=== PATIENT | female | born 1945 | race African-American/Black ===

== ENCOUNTER 2016-12-06 12:55 | Inpatient (IN) | payer MEDICARE, MEDICAID ==
[~2016-12-06] VITALS: Ht 149.9 cm; Wt 78.5 kg
--- NOTE | 2016-12-06 12:55 | NUR ---
PT BIB FAMILY C/O ALBA PAIN S/P FALL, -KO. PLACED ON MONITOR. VSS. AWAITING MD ORDER. GOWNED PT.
--- NOTE | 2016-12-06 13:42 | NUR ---
CALLED NURSING SUP. FOR TELE BED
--- NOTE | 2016-12-06 13:44 | NUR ---
CHASE PAGED, DR. GRETTA Rosado PRODUCTION HARDENER
[2016-12-06] MEDS ORDERED: FENO145T20 PO (14:18)
[2016-12-06] MEDS ORDERED: AMLO5TAB2 PO (14:18)
[2016-12-06] MEDS ORDERED: METO50TA3 PO (14:18)
[2016-12-06] MEDS ORDERED: ASPI81TA2 PO (14:18)
[2016-12-06] MEDS ORDERED: ATOR10TA PO (14:18)
[2016-12-06] MEDS ORDERED: GABA-534 PO (14:18)
[2016-12-06] MEDS ORDERED: PROP15DR EACHEYE (14:20)
[2016-12-06] MEDS ORDERED: LATA2.5D7 EACHEYE (14:20)
[2016-12-06] MEDS ORDERED: INSU100I19 SQ (14:20)
[2016-12-06] MEDS ORDERED: DORZ10DR11 EACHEYE (14:20)
[2016-12-06] MEDS ORDERED: INSU100I4 SQ (14:20)
--- NOTE | 2016-12-06 14:48 | NUR ---
PT BACK FROM CT VIA [facility]
[2016-12-06 15:40] LABS: INR 1.12 (0.87-1.13); PROTHROMBIN TIME 11.8 SECS (9.5-12.7); TROPONIN I < 0.017 ng/mL (0.00-0.056)
--- NOTE | 2016-12-06 15:40 | NUR ---
AWAITING PICC LINE INSERTION
[2016-12-06 15:43] LABS: CALCIUM, SERUM 8.5 mg/dL (8.5-10.1); CARBON DIOXIDE 24 mmol/L (21-32); CHLORIDE 98 mmol/L (98-107); CREATININE 1.4 mg/dL (0.6-1.3); GLUCOSE 297 mg/dL (74-106); POTASSIUM 3.4 mmol/L (3.5-5.1); SODIUM SERUM 132 mmol/L (136-145); UREA NITROGEN, BLOOD 33 mg/dL (7-18)
[2016-12-06 15:49] LABS: ALANINE AMINOTRANSFERASE 30 U/L (12-78); ASPARTATE AMINOTRANSFERASE 26 U/L (15-37); BILIRUBIN,DIRECT 0.3 mg/dL (0.0-0.2); BILIRUBIN,TOTAL 0.6 mg/dL (0.2-1.0); TOTAL PROTEIN, SERUM 7.7 g/dL (6.4-8.2)
[2016-12-06 15:50] LABS: ALKALINE PHOSPHATASE 51 U/L (46-116)
--- NOTE | 2016-12-06 16:51 | NUR ---
PAGED DR. GLYNN FOR ADMISSION
[2016-12-06] MEDS ORDERED: MAG HYDROX/AL HYDROX/SIMETH 30 ML UDC PO PRN (17:00)
[2016-12-06] MEDS ORDERED: Z GUARD REMEDY 2 OZ OINT TP PRN (17:00)
[2016-12-06] MEDS ORDERED: ZOLPIDEM TARTRATE 5 MG TABLET PO PRN (17:00)
[2016-12-06] MEDS: TIMOLOL MAL/DORZOLAM HCL OPHTH 10 ML BOTTLE EACHEYE SCH ×2 (17:00→21:26)
[2016-12-06] MEDS ORDERED: ONDANSETRON HCL/PF 4 MG/2 ML VIAL IVP PRN (17:00)
[2016-12-06] MEDS ORDERED: MAGNESIUM HYDROXIDE 30 ML UDC PO PRN (17:00)
[2016-12-06] MEDS ORDERED: HYDROCODONE/APAP 10/325MG 1 EA TABLET PO PRN (17:00)
[2016-12-06] MEDS ORDERED: ACETAMINOPHEN 325 MG TABLET PO PRN (17:00)
[2016-12-06] MEDS ORDERED: HYDROCODONE/APAP 5/325MG 1 EACH TABLET PO PRN (17:00)
--- NOTE | 2016-12-06 17:08 | NUR ---
REPORT GIVEN BY TELLY TO THE FLOOR NURSE; CONTINUE PLAN OF CARE
--- NOTE | 2016-12-06 17:19 | NUR ---
GAVE REPORT TO JAE VELAZQUEZAMMONIA REFRIGERATION TECHNICIAN [facility] DR GLYNN. TRANSFER VIA ACLS PROTOCOL
[2016-12-06 17:59] VITALS: BP 133/69
[2016-12-06] MEDS: GABAPENTIN 300 MG CAPSULE PO SCH (18:55)
[2016-12-06] MEDS: METOPROLOL TARTRATE 50 MG TABLET PO SCH (18:56)
[2016-12-06] MEDS: ENOXAPARIN SODIUM 30 MG/0.3 ML DISP.SYRIN SQ SCH (18:57)
[2016-12-06] MEDS ORDERED: DEXTROSE 50%-WATER 50 ML DISP.SYRIN IV PRN (19:00)
--- NOTE | 2016-12-06 19:05 | NUR ---
admission note received patient at 1730 via gurney from [facility]. Patient A+Ox3. breathing even and unlabored on room air. VS stable. tele monitor on SR. IV access no CLIFTON midline, good blood return, no complications at site. patient able to ambulate but high fall risk. bed alarm on, bed low. informed patient and family to ask for assistance before ambulating. blood sugar 394, informed MD. Uribe gave telephone order to follow diabetic management that is followed at home. daughter at bed side gave clear instructions and order faxed to pharmacy. pending insulin delivery at this time.
--- NOTE | 2016-12-06 19:05 | NUR ---
telegraph service clerk opening notes: received patient in bed resting with family members at bedside. Patient A+Ox3. breathing even and unlabored on room air. VS stable. tele monitor on SR first degree 70s. IV access is at CLIFTON midline. no complications at site. patient able to ambulate but high fall risk. bed alarm on, bed kept in low, locked position, and side rails x 2 up. awaiting on pharmacy to bring up insulin. will continue to monitor pt.
--- NOTE | 2016-12-06 19:43 | NUR ---
end of shift handed off report. at time of change of shift, no insulin or eye gtt available, endorsed to night nurse to f/u. also endorsed ortho BP and skin assessment f/u. d/t time limitation unable to complete. patient in stable condition at change of shift. no LOC or breathing complications. 5/10 pain, denies meds.denies laxatives/ prune juice for BM at this time. explained to family that insulin will be admin when arrive to unit. verbalized understanding. call light in reach.
[2016-12-06] MEDS: INSULIN LISPRO/ASPART 100 UNIT/ML CARTRIDGE SQ SCH (20:34)
[2016-12-06 20:46] VITALS: BP 146/66
[2016-12-06 21:00] LABS: BASOPHILS # (AUTO) 0.1 /CMM (0.0-0.2); BASOPHILS % (AUTO) 0.4 % (0.0-2.0); EOSINOPHILS # (AUTO) 0.2 /CMM (0.0-0.7); EOSINOPHILS % (AUTO) 1.2 % (0.0-6.0); HEMATOCRIT 38 % (33-45); LYMPHOCYTES % (AUTO) 27.7 % (20.0-44.0); MEAN CORPUSCULAR HEMOGLOBIN 27 PG (26.0-33.0); MEAN CORPUSCULAR HGB CONC 32 g/dl (31.0-36.0); MEAN CORPUSCULAR VOLUME 87 fL (82-100); MONOCYTES # (AUTO) 1.5 /CMM (0.1-1.30); MONOCYTES % (AUTO) 10.7 % (2.0-12.0); NEUTROPHILS # (AUTO) 8.6 /CMM (1.8-8.9); PLATELET COUNT (AUTO) 207 /CMM (150-450); RDW COEFFICIENT OF VARIATION 15.1 (11.5-15.0); WHITE BLOOD COUNT (AUTO) 14.3 K/uL (4.3-11.0)
[2016-12-06] MEDS: FENOFIBRATE NANOCRYS (145 MG) 145 MG TABLET PO SCH (21:26)
[2016-12-06] MEDS: ATORVASTATIN 10 MG TABLET PO SCH (21:26)
[2016-12-06] MEDS: BLOOD SUGAR DIAGNOSTIC 1 EACH STRIP VI SCH (22:11)
[2016-12-06] MEDS: LATANOPROST EYE DROP 0.005% 2.5 ML BOTTLE EACHEYE SCH (22:11)
[2016-12-06] MEDS: INSULIN DETEMIR 100 UNIT/ML CARTRIDGE SQ SCH (22:21)
[2016-12-07] VITALS (8 sets, daily range): BP systolic 114–138; BP diastolic 58–76
[2016-12-07] MEDS: BLOOD SUGAR DIAGNOSTIC 1 EACH STRIP VI SCH ×4 (06:22→21:49)
--- NOTE | 2016-12-07 07:15 | NUR ---
telegraph editor closing notes: all needs were attended and anticipated for. Patient A+Ox3. breathing even and unlabored on room air. no signs or symptoms of distress noted. tele monitor on SR first degree 70s. IV access is at CLIFTON midline. no complications at site. patient able to ambulate but high fall risk. bed alarm on, bed kept in low, locked position, and side rails x 2 up. endorsed to am nurse for robin.
[2016-12-07 07:20] LABS: BASOPHILS # (AUTO) 0.1 /CMM (0.0-0.2); BASOPHILS % (AUTO) 0.8 % (0.0-2.0); EOSINOPHILS # (AUTO) 0.3 /CMM (0.0-0.7); EOSINOPHILS % (AUTO) 2.6 % (0.0-6.0); HEMATOCRIT 33 % (33-45); HEMOGLOBIN 11.1 g/dL (11.5-14.8); LYMPHOCYTES # (AUTO) 4.8 /CMM (0.8-4.8); LYMPHOCYTES % (AUTO) 36.6 % (20.0-44.0); MEAN CORPUSCULAR HEMOGLOBIN 28 PG (26.0-33.0); MEAN CORPUSCULAR HGB CONC 34 g/dl (31.0-36.0); MEAN CORPUSCULAR VOLUME 83 fL (82-100); MONOCYTES # (AUTO) 1.1 /CMM (0.1-1.30); MONOCYTES % (AUTO) 8.4 % (2.0-12.0); NEUTROPHILS # (AUTO) 6.7 /CMM (1.8-8.9); NEUTROPHILS % (AUTO) 51.6 % (43.0-81.0); PLATELET COUNT (AUTO) 224 /CMM (150-450); RDW COEFFICIENT OF VARIATION 14.8 (11.5-15.0); RED BLOOD CELL COUNT(AUTO) 3.99 MIL/uL (4.0-5.2)
[2016-12-07 07:27] LABS: CALCIUM, SERUM 8.6 mg/dL (8.5-10.1); CREATININE 1.4 mg/dL (0.6-1.3); MAGNESIUM 1.8 mg/dL (1.8-2.4); PHOSPHORUS 3.4 mg/dL (2.5-4.9); POTASSIUM 3.2 mmol/L (3.5-5.1)
[2016-12-07] MEDS: PANTOPRAZOLE 40 MG TABLET.DR PO SCH (07:30)
[2016-12-07] MEDS: INSULIN LISPRO/ASPART 100 UNIT/ML CARTRIDGE SQ SCH ×3 (07:30→16:54)
--- NOTE | 2016-12-07 07:30 | NUR ---
RN NOTES RECEIVED PT IN BED. AWAKE, ALERT, ORIENTED X 3. IN NO APPARENT DISTRESS. RESPIRATIONS EVEN AND UNLABORED. DENIES PAIN AND DISCOMFORT AT THIS TIME. CALL LIGHT WITHIN REACH. WILL CONTINUE TO MONITOR
[2016-12-07 08:03] LABS: THYROID STIMULATING HORMONE 2.063 uIU/mL (0.358-3.74)
--- NOTE | 2016-12-07 08:12 | NUR ---
RN NOTES PT SEEN BY DR NAGEL AND DR RODAS FOR CONSULT PREOP. PER DR NAGEL, SURGERY WILL BE DONE THIS AFTERNOON- PT TO BE NPO, AND HAVE CONSENT SIGNED. NOTED AND CARRIED OUT. HELD INSULIN FOR AM DUE TO PENDING SURGERY AND PT BEING NPO. WILL MONITOR CLOSELY
[2016-12-07] MEDS: ASPIRIN 81 MG TAB.CHEW PO SCH (08:13)
[2016-12-07] MEDS: METOPROLOL TARTRATE 50 MG TABLET PO SCH ×2 (08:50→16:54)
[2016-12-07] MEDS: TIMOLOL MAL/DORZOLAM HCL OPHTH 10 ML BOTTLE EACHEYE SCH ×4 (08:50→21:46)
[2016-12-07] MEDS: VALSARTAN 80 MG TABLET PO SCH (08:50)
[2016-12-07] MEDS: GABAPENTIN 300 MG CAPSULE PO SCH ×3 (08:50→16:54)
[2016-12-07] MEDS: AMLODIPINE BESYLATE 5 MG TABLET PO SCH (08:50)
--- NOTE | 2016-12-07 09:06 | NUR ---
RN NOTES PT GAVE VERBAL CONSENT FOR SURGERY, ANESTHESIA AND BLOOD TRANSFUSION. UNABLE TRO SIGN FOR HERSELF DUE TO INJURY- CONSENT WITNESSED BY ANOTHER RN, DEZ CURTIS. CONSENTS PLACED ON CHART
[2016-12-07 09:09] LABS: IRON, SERUM 34 ug/dl (50-175); TOTAL IRON BINDING CAPACITY 353 ug/dl (250-450)
[2016-12-07 09:14] LABS: TROPONIN I < 0.017 ng/mL (0.00-0.056)
[2016-12-07 09:37] LABS: FERRITIN 124 ng/mL (8-388)
--- NOTE | 2016-12-07 11:30 | NUR ---
rn notes pt signed another consent; used left hand to sign consents for surgery, anesthesia and blood transfusion. explained to pt that still unable to get a hold of any family member listed; said ok. will continue to closely monitor
--- NOTE | 2016-12-07 11:43 | NUR ---
RN NOTES DR GLYNN NOTIFIED OF PT'S POTASSIUM LEVEL AT 3.2. INFORMED THAT PT SCHEDULED FOR SURGERY. NO NEW ORDERS AT THIS TIME. SAID OK TO PROCEED WITH SURGERY. NOTIFIED SURGERY VIA DALILA
--- NOTE | 2016-12-07 13:30 | NUR ---
RN NOTES PT TAKEN BY OR STAFF TO SURGERY FOR SCHEDULED HEMIARTHROPLASTY OF RIGHT SHOULDER. WILL AWAIT RETURN
[2016-12-07] MEDS ORDERED: MIDAZOLAM HCL 2 MG/2ML VIAL ONE (13:49)
[2016-12-07] MEDS ORDERED: FENTANYL PF 100MCG/2ML AMPUL ONE (13:49)
[2016-12-07] MEDS ORDERED: ROCURONIUM BROMIDE 50 MG/5 ML ONE (13:50)
[2016-12-07] MEDS ORDERED: BACITRACIN 50000 UNITS/VIAL ONE (14:23)
[2016-12-07] MEDS ORDERED: oxyCODONE/APAP (5/325 MG) 1 UDTAB TABLET PO PRN ×2 (15:30)
[2016-12-07] MEDS ORDERED: ANESTHESIA TRAY IN PYXIS 1 EA TRAY MC ONE (15:36)
--- NOTE | 2016-12-07 16:45 | NUR ---
RN NOTES PT BACK TO ROOM FROM SURGERY. NOTED WITH SLING ON RIGHT ARM, AND MEPILEX DRESSING ON RIGHT SHOULDER. NO REPORTS OF PAIN. SPOKE WITH DAUGHTER RASHMI- GAVE UPDATE. WILL CONTINUE TO CLOSELY MONITOR
--- NOTE | 2016-12-07 18:30 | NUR ---
RN NOTES PT IN BED. AWAKE, ALERT, ORIENTED X 4. WITH FAMILY AT BEDSIDE. IN NO APPARENT DISTRESS. RESPIRATIONS EVEN AND UNLABORED. STATED THAT PAIN IS BETTER AFTER GETTING PRN PAIN MEDS. WILL ENDORSE TO ONCOMING SHIFT
--- NOTE | 2016-12-07 20:00 | NUR ---
TELE NOTES ALERT AND ORIENTED. ON OXYGEN AT 2LPM VIA NC. NO SOB NOTED. COMPLAINT OF 6/10 TOLERABLE PAIN. LEFT SHOULDER SX SITE NOTED COVERED WITH BANDAGE WITH SLING IN PLACED NOTED. LEFT UPPER ARM MIDLINE NOTED. PATENT AND INTACT. WILL CONTINUE TO MONITOR
[2016-12-07] MEDS: FENOFIBRATE NANOCRYS (145 MG) 145 MG TABLET PO SCH (21:46)
[2016-12-07] MEDS: ATORVASTATIN 10 MG TABLET PO SCH (21:46)
[2016-12-07] MEDS: LATANOPROST EYE DROP 0.005% 2.5 ML BOTTLE EACHEYE SCH (21:46)
[2016-12-07] MEDS: ENOXAPARIN SODIUM 30 MG/0.3 ML DISP.SYRIN SQ SCH (21:49)
--- NOTE | 2016-12-07 22:00 | NUR ---
FILTER PRESS SUPERVISOR NOTES PT COMPLAINT OF RIGHT SHOULDER PAIN 04/11. CALLED DR. OLEARY FOR PAIN MEDICATION DUE TO PERCOCET IS NOT DUE YET. DR. OLEARY ORDERED MORPHINE 2 MG IVP Q4H PRN . NOTED AND CARRIED OUT.
[2016-12-07] MEDS ORDERED: MORPHINE SULFATE INJ 2 MG/ML DISP.SYRIN ONE (22:05)
[2016-12-07] MEDS: MORPHINE SULFATE INJ 2 MG/ML DISP.SYRIN IV PRN (22:12)
[2016-12-07] MEDS: INSULIN DETEMIR 100 UNIT/ML CARTRIDGE SQ SCH (22:18)
[2016-12-07] MEDS ORDERED: IV SET PRIMARY PUMP SET 1 EA INFUS.SET MC ONE (23:13)
[2016-12-07] MEDS: Potassium Chloride 40 MEQ in IV NS 0.9% 1,000 ML IV PRN (23:22)
[2016-12-08] VITALS: BP_SYST 126; BP_SYST 150; BP_DIAS 64; BP_DIAS 82
[2016-12-08 04:00] VITALS: BP 124/58
[2016-12-08] MEDS: Potassium Chloride 40 MEQ in IV NS 0.9% 1,000 ML IV PRN ×2 (06:34→16:32)
[2016-12-08] MEDS: PANTOPRAZOLE 40 MG TABLET.DR PO SCH (06:46)
[2016-12-08] MEDS: BLOOD SUGAR DIAGNOSTIC 1 EACH STRIP VI SCH ×4 (06:47→22:13)
[2016-12-08] MEDS: INSULIN LISPRO/ASPART 100 UNIT/ML CARTRIDGE SQ SCH ×3 (06:50→17:06)
--- NOTE | 2016-12-08 07:04 | NUR ---
SIGNAL INSPECTOR NOTES PT TOLERATING PAIN WELL. NO SIGNIFICANT CHANGES NOTED THROUGHOUT THE NIGHT. ALL NEEDS ANTICIPATED. NURSING CARE RENDERED. KEPT CLEAN AND DRY. WILL ENDORSE TO THE NEXT SHIFT.
[2016-12-08 07:07] LABS: BASOPHILS % (AUTO) 0.1 % (0.0-2.0); EOSINOPHILS % (AUTO) 0.1 % (0.0-6.0); HEMATOCRIT 35 % (33-45); HEMOGLOBIN 11.5 g/dL (11.5-14.8); LYMPHOCYTES # (AUTO) 1.8 /CMM (0.8-4.8); LYMPHOCYTES % (AUTO) 13.5 % (20.0-44.0); MEAN CORPUSCULAR HEMOGLOBIN 28 PG (26.0-33.0); MEAN CORPUSCULAR HGB CONC 33 g/dl (31.0-36.0); MEAN CORPUSCULAR VOLUME 85 fL (82-100); MONOCYTES # (AUTO) 1.2 /CMM (0.1-1.30); MONOCYTES % (AUTO) 9.1 % (2.0-12.0); NEUTROPHILS # (AUTO) 10.4 /CMM (1.8-8.9); NEUTROPHILS % (AUTO) 77.2 % (43.0-81.0); PLATELET COUNT (AUTO) 254 /CMM (150-450); RDW COEFFICIENT OF VARIATION 14.8 (11.5-15.0); RED BLOOD CELL COUNT(AUTO) 4.11 MIL/uL (4.0-5.2); WHITE BLOOD COUNT (AUTO) 13.5 K/uL (4.3-11.0)
[2016-12-08 07:25] VITALS: BP 140/70
[2016-12-08 07:28] LABS: ALBUMIN 2.3 g/dL (3.4-5.0); BILIRUBIN,TOTAL 0.4 mg/dL (0.2-1.0); CALCIUM, SERUM 8.1 mg/dL (8.5-10.1); CREATININE 1.2 mg/dL (0.6-1.3); MAGNESIUM 1.9 mg/dL (1.8-2.4); PHOSPHORUS 3.2 mg/dL (2.5-4.9); POTASSIUM 4.6 mmol/L (3.5-5.1); TOTAL PROTEIN, SERUM 7.2 g/dL (6.4-8.2)
--- NOTE | 2016-12-08 07:35 | NUR ---
MEDIA MONITOR OPEN NOTES RECEIVED REPORT FROM MELTING FURNACE SKIMMER NURSE. PATIENT IS IN BED, AOX3. NO SIGNS AND SYMPTOMS OF DISTRESS. PAIN LEVEL 6/10. 4L/NC. PATIENT IS ON TELE MONITORING SR WITH FIRST DEGREE AV BLOCK 81 BMP. WILL CONTINUE TO EVALUATE AND MONITOR PATIENT CONDITION.
[2016-12-08] MEDS: MORPHINE SULFATE INJ 2 MG/ML DISP.SYRIN IV PRN ×2 (08:32→15:05)
[2016-12-08] MEDS: ASPIRIN 81 MG TAB.CHEW PO SCH (08:36)
[2016-12-08] MEDS: TIMOLOL MAL/DORZOLAM HCL OPHTH 10 ML BOTTLE EACHEYE SCH ×4 (08:36→22:12)
[2016-12-08] MEDS: GABAPENTIN 300 MG CAPSULE PO SCH ×3 (08:37→17:01)
[2016-12-08] MEDS: METOPROLOL TARTRATE 50 MG TABLET PO SCH ×2 (08:38→17:03)
[2016-12-08] MEDS: AMLODIPINE BESYLATE 5 MG TABLET PO SCH (08:38)
[2016-12-08] MEDS: VALSARTAN 80 MG TABLET PO SCH (08:38)
[2016-12-08 16:00] VITALS: BP 141/75
--- NOTE | 2016-12-08 18:33 | NUR ---
RN NOTES PATIENT IS IN BED, AWAKE, ALERT AND ORIENTED TO NAME, TIME AND PLACE. PATIENT PAIN LEVEL WAS CONTROLLED WITH MORPHINE. NO SIGNIFICANT CHANGES NOTED THROUGHOUT MY SHIFT. ALL NEEDS ANTICIPATED. NURSING CARE RENDERED. KEPT CLEAN AND DRY. WILL ENDORSE TO THE CLIENT SUPPORT ANALYST NURSE.
--- NOTE | 2016-12-08 19:30 | NUR ---
RN OPENING NOTES RECEIVED REPORT FROM DARSHANAHIFT RNLIZ. FOUND Pt AWAKE IN BED. HELPED Pt TO MOVE UP IN BED. NO S/S OF ACUTE DISTRESS OR SOB NOTED. Pt IS A/O 1-2 (CONFUSED AT TIMES). Pt IS VERBAL, ABLE TO MAKE NEEDS KNOWN. IV ACCESS CLIFTON MIDLINE. SAFETY MEASURES IN PLACE. BED LOW, LOCKED, HOB ELEVATED, SIDE RAILS UP, CALL LIGHT AND BEDSIDE TABLE WITHIN REACH. WILL CONTINUE TO MONITOR Pt THROUGHOUT THE NIGHT FOR SAFETY.
[2016-12-08 20:00] VITALS: BP 142/75
[2016-12-08] MEDS: FENOFIBRATE NANOCRYS (145 MG) 145 MG TABLET PO SCH (22:13)
[2016-12-08] MEDS: ATORVASTATIN 10 MG TABLET PO SCH (22:13)
[2016-12-08] MEDS: INSULIN DETEMIR 100 UNIT/ML CARTRIDGE SQ SCH (22:20)
[2016-12-08] MEDS: ENOXAPARIN SODIUM 30 MG/0.3 ML DISP.SYRIN SQ SCH (22:21)
[2016-12-08] MEDS: LATANOPROST EYE DROP 0.005% 2.5 ML BOTTLE EACHEYE SCH (22:23)
--- NOTE | 2016-12-08 22:29 | NUR ---
BG 148. ADMINISTERED SCHEDULED LEVEMIR 26UN. JUICE AT BEDSIDE. WILL CONTINUE TO MONITOR Pt's BG LEVELS.
[2016-12-09] MEDS: Potassium Chloride 40 MEQ in IV NS 0.9% 1,000 ML IV PRN (05:02)
[2016-12-09] MEDS: BLOOD SUGAR DIAGNOSTIC 1 EACH STRIP VI SCH ×2 (06:34→11:59)
[2016-12-09] MEDS: INSULIN LISPRO/ASPART 100 UNIT/ML CARTRIDGE SQ SCH ×2 (06:38→12:04)
--- NOTE | 2016-12-09 06:39 | NUR ---
BG 133. NO HUMALOG/NOVALOG INSULIN COVERAGE NEEDED SINCE BG<200 PER ORDER.
--- NOTE | 2016-12-09 06:45 | NUR ---
RN CLOSING NOTES NO SIGNIFICANT CHANGES DURING THE NIGHT. NO S/S OF ACUTE DISTRESS OR SOB. ALL NEEDS MET AND ATTENDED TO. WILL ENDORSE TO DAYSHIFT RN FOR Pt's EVERARDO.
[2016-12-09 06:57] LABS: ALBUMIN 2.3 g/dL (3.4-5.0); BILIRUBIN,TOTAL 0.5 mg/dL (0.2-1.0); CALCIUM, SERUM 8.4 mg/dL (8.5-10.1); MAGNESIUM 1.7 mg/dL (1.8-2.4); PHOSPHORUS 1.5 mg/dL (2.5-4.9); POTASSIUM 4.2 mmol/L (3.5-5.1); TOTAL PROTEIN, SERUM 6.9 g/dL (6.4-8.2)
--- NOTE | 2016-12-09 07:05 | NUR ---
MS RN OPENING NOTES RECEIVED PT. FROM NIGHTSHIFT NURSE, AWAKE AND COMFORTABLE IN BED. PT. IS A/O X1-2 WITH PERIODS OF CONFUSION. NO SOB OR SIGNS OF DISTRESS NOTED. ON 4L NC SATING WELL AT 96%. BREATHING IS EVEN AND UNLABORED. PT. DENIES PAIN AT THIS TIME. SLING REMAINS ON. LEFT UPPER ARE MIDLINE IS PATENT AND INTACT, INFUSING KCL 40MEQ @ 125ML/HR. PT. IS TOLERATING INFUSION WELL. NO REDNESS OR SIGNS OF INFILTRATION NOTED. BRED IN LOW LOCKED POSITION, BED ALARM ON, SIDE RAILS UP X3, CALL LIGHT WITHIN REACH. WILL CONTINUE TO MONITOR.
[2016-12-09] MEDS ORDERED: NEUTRA PHOS 1 POWD.PACKET PO SCH (07:30)
[2016-12-09 08:00] VITALS: BP 163/76
[2016-12-09] MEDS ORDERED: SECONDARY IV SET 1 EA INFUS.SET MC ONE (08:51)
[2016-12-09] MEDS: Magnesium 1GM/D5W 100ML PREMIX 100 ML IV SCH ×2 (09:08→10:31)
[2016-12-09 09:09] VITALS: BP 163/76
[2016-12-09] MEDS: METOPROLOL TARTRATE 50 MG TABLET PO SCH (09:09)
[2016-12-09] MEDS: VALSARTAN 80 MG TABLET PO SCH (09:09)
[2016-12-09] MEDS: AMLODIPINE BESYLATE 5 MG TABLET PO SCH (09:09)
[2016-12-09] MEDS: GABAPENTIN 300 MG CAPSULE PO SCH ×2 (09:09→11:59)
[2016-12-09] MEDS: ASPIRIN 81 MG TAB.CHEW PO SCH (09:09)
[2016-12-09] MEDS: PANTOPRAZOLE 40 MG TABLET.DR PO SCH (09:10)
[2016-12-09] MEDS: TIMOLOL MAL/DORZOLAM HCL OPHTH 10 ML BOTTLE EACHEYE SCH ×2 (09:10→12:02)
[2016-12-09 11:03] LABS: BASOPHILS % (AUTO) 0.3 % (0.0-2.0); EOSINOPHILS # (AUTO) 0.1 /CMM (0.0-0.7); EOSINOPHILS % (AUTO) 0.8 % (0.0-6.0); HEMATOCRIT 32 % (33-45); HEMOGLOBIN 10.5 g/dL (11.5-14.8); LYMPHOCYTES # (AUTO) 3.7 /CMM (0.8-4.8); LYMPHOCYTES % (AUTO) 22.6 % (20.0-44.0); MEAN CORPUSCULAR HEMOGLOBIN 28 PG (26.0-33.0); MEAN CORPUSCULAR HGB CONC 33 g/dl (31.0-36.0); MEAN CORPUSCULAR VOLUME 84 fL (82-100); MONOCYTES # (AUTO) 1.2 /CMM (0.1-1.30); MONOCYTES % (AUTO) 7.7 % (2.0-12.0); NEUTROPHILS # (AUTO) 11.1 /CMM (1.8-8.9); NEUTROPHILS % (AUTO) 68.6 % (43.0-81.0); PLATELET COUNT (AUTO) 250 /CMM (150-450); RDW COEFFICIENT OF VARIATION 14.7 (11.5-15.0); RED BLOOD CELL COUNT(AUTO) 3.78 MIL/uL (4.0-5.2); WHITE BLOOD COUNT (AUTO) 16.1 K/uL (4.3-11.0)
[2016-12-09] MEDS ORDERED: ENOX30DI SQ (11:37)
[2016-12-09] MEDS ORDERED: OXYC1TAB8 PO (11:37)
--- NOTE | 2016-12-09 15:40 | NUR ---
MS RN NOTES PT. BRYAN WAS DISCHARGED FROM UNIT IN STABLE CONDITION. WAS SAFELY TRANSFERRED FROM BED TO [facility] AND TAKEN VIA AMBULANCE. ALL NEEDS MET DURING SHIFT AND ORDERS CARRIED OUT ACCORDINGLY.
== END 2016-12-09 15:40 | DRG 483 ==
LOC: ER 12:57 → TELE 14:42 → MED 12-08 10:00
PROC: 05H633Z Insertion of Infusion Device into Left Subclavian Vein, Percutaneous Approach (ICD-10-PCS; 2016-12-06)
PROC: 0RRJ0J6 Replacement of Right Shoulder Joint with Synthetic Substitute, Humeral Surface, Open Approach (ICD-10-PCS; principal; 2016-12-07 14:31)
DX: S42.291A Other displaced fracture of upper end of right humerus, initial encounter for closed fracture (principal); N17.0 Acute kidney failure with tubular necrosis; E87.1 Hypo-osmolality and hyponatremia; W01.0XXA Fall on same level from slipping, tripping and stumbling without subsequent striking against object, initial encounter; Z79.899 Other long term (current) drug therapy; Z79.82 Long term (current) use of aspirin; D72.829 Elevated white blood cell count, unspecified; E11.65 Type 2 diabetes mellitus with hyperglycemia; E66.9 Obesity, unspecified; E78.5 Hyperlipidemia, unspecified; E87.6 Hypokalemia; M19.90 Unspecified osteoarthritis, unspecified site; Y93.9 Activity, unspecified; E05.90 Thyrotoxicosis, unspecified without thyrotoxic crisis or storm; F03.90 Unspecified dementia, unspecified severity, without behavioral disturbance, psychotic disturbance, mood disturbance, and anxiety; I12.9 Hypertensive chronic kidney disease with stage 1 through stage 4 chronic kidney disease, or unspecified chronic kidney disease; N18.9 Chronic kidney disease, unspecified; R29.6 Repeated falls; Z79.4 Long term (current) use of insulin; Y92.002 Bathroom of unspecified non-institutional (private) residence as the place of occurrence of the external cause
CPT/HCPCS: 36415; 36569; 70450-TC; 71010-TC; 73060-TC; 73090-TC; 80048-TC; 80053-TC; 80061-TC; 80076-TC; 82728-TC; 82962-TC; 83540-TC; 83735-TC; 84100-TC; 84439-TC; 84443-TC; 84484-TC; 85025-TC; 85730-TC; 86850-TC; 87081-TC; 93307-TC; 93880-TC; 94799-TC; 97001-TC; A4606; J1100; J1650; J1815; J2250; J2270; J2405; J2704; J3010; J3475; J3480; J7030; Z7610